=== PATIENT | female | born 2000 | race Hispanic/Latino ===

== ENCOUNTER 2021-09-04 09:04 | Emergency (ER) | payer BC ==
[~2021-09-04] VITALS: Ht 162.6 cm; Wt 61.2 kg
[2021-09-04] MEDS ORDERED: FIORICET 50-301 EACH PO (10:13)
[2021-09-04] MEDS ORDERED: IBUPROFEN 600 MG TAB ONE (10:17)
[2021-09-04] MEDS ORDERED: IBUPROFEN 600 MG TAB PO ONE (10:30)
== END 2021-09-04 10:51 | disposition home or self-care (01) ==
LOC: FSED 09:10
DX: R51.9 Headache, unspecified (principal); F17.210 Nicotine dependence, cigarettes, uncomplicated
CPT/HCPCS: 99282